=== PATIENT | female | born 1995 | race African-American/Black ===

== ENCOUNTER 2025-09-15 09:45 | Emergency (ER) | payer SELFPAY ==
[~2025-09-15] VITALS: Ht 170.2 cm; Wt 121.0 kg
[2025-09-15 10:11] VITALS: TEMP 37; O2SAT 100
[2025-09-15 12:11] LABS: CLARITY URINE CLEAR (CLEAR); COLOR URINE YELLOW (YELLOW); GLUCOSE URINE NEGATIVE (NEGATIVE); KETONES URINE NEGATIVE (NEGATIVE); LEUKOCYTE ESTERASE URINE NEGATIVE (NEGATIVE); NITRITE URINE NEGATIVE (NEGATIVE); OCCULT BLOOD URINE 3+ (NEGATIVE); PH URINE 6.0 (4.5-8.0); PROTEIN URINE NEGATIVE (NEGATIVE); SPECIFIC GRAVITY URINE 1.023 (1.005-1.030); UROBILINOGEN URINE 1.0 E.U./dL (0.2-1.0)
[2025-09-15 12:39] LABS: MUCUS URINE TRACE /lpf (< = 2+)
[2025-09-15 12:40] LABS: BACTERIA URINE TRACE; RBC URINE 50-100 /hpf (0-2); SQUAMOUS EPITHELIAL CELL URINE FEW /lpf (RARE/1+)
[2025-09-15 12:41] LABS: WBC URINE 0-2 /hpf (0-2)
[2025-09-15] MEDS ORDERED: METR-167 MT (12:47)
[2025-09-15 12:59] VITALS: BP 134/88; PULSE 63; RESP 16; O2SAT 100
[2025-09-18 05:08] LABS: CHLAMYDIA TRACHOMATIS NAA Negative (Negative); NEISSERIA GONORRHOEAE NAA Negative (Negative)
== END 2025-09-15 13:05 | disposition home or self-care (01) ==
LOC: ER 10:04
DX: N76.0 Acute vaginitis (principal)
CPT/HCPCS: 81003; 81025; 87210; 87491; 87591; 99284